=== PATIENT | male | born 1940 | race Caucasian/White ===

== ENCOUNTER 2019-05-27 14:26 | Day surgery (SDC) | payer MEDICARE ==
[2019-05-27] MEDS ORDERED: LIDOCAINE 2% MDV (20MG/ML) 20ML VIAL IV ONE (14:27)
[2019-05-27] MEDS ORDERED: SEVOFLURANE 250 ML INH ONE (14:27)
[2019-05-27] MEDS ORDERED: EPHEDRINE SULFATE 50 MG/ML ML IV ONE (14:27)
[2019-05-27] MEDS ORDERED: FENTANYL PF 100MCG/2ML VIAL IV ONE (14:27)
[2019-05-27] MEDS ORDERED: PROPOFOL 10 MG/ML VIAL IV ONE (14:27)
[2019-05-27] MEDS ORDERED: RINGERS SOLUTION,LACTATED 1,000 ML IV ONE ×2 (14:35→16:03)
[2019-05-27 15:03] LABS: ABSOLUTE NEUTROPHIL COUNT 8.63; HEMATOCRIT 39.3 % (42.0-52.0); HEMOGLOBIN 12.6 gm/dl (14.0-18.0); MEAN CELL VOLUME 88.9 fl (81-97); MEAN CORPUSCULAR HEMOGLOBIN 28.5 pg (27-33); MEAN CORPUSCULAR HGB CONC 32.1 g/dl (32-36); MEAN PLATELET VOLUME 12.2 fl (7.4-10.4); PLATELET COUNT 144 K/uL (130-400); RED BLOOD COUNT 4.42 M/uL (4.40-5.70); RED CELL DISTRIBUTION WIDTH 14.7 % (11.5-14.5); WHITE BLOOD COUNT W/O DIFF 10.4 K/uL (4.2-12.2)
[2019-05-27 15:16] LABS: BLOOD UREA NITROGEN 28 mg/dL (8-23)
[2019-05-27 15:17] LABS: CREATININE 1.1 mg/dL (0.7-1.2); EST GLOMERULAR FILTRATION RATE > 60 mL/min
[2019-05-27 15:19] LABS: GLUCOSE,RANDOM 424 mg/dL (74-109)
[2019-05-27] MEDS ORDERED: NOVOLOG FLEXPEN (INSULIN ASPART) 100 UNITS/ML SQ ONE (16:35)
--- NOTE | 2019-05-27 16:48 | Consult ---
Consult Order Detail - Reason for Consult Consult Date: 05/27/19 - Chief Complaint Chief Complaint: GROSS HEMATURIA HPI Consult - General Complaint: Hyperglycemia -: Unknown Consistency: Constant - History of Present Illness History of Present Illness: Mr. Sainz is a 78 y/o male patient who presents to [facility] after having gross hematuria. The patient had bladder tumor resection yesterday afternoon and was discharged. As per report the patient continued to have large volume hematuria and was instructed to come into the hospital for further evaluation. On arrival pre-operative labs showed that his Hgb was 12 and his serum glucose was 403. He is not on any medications for glucose control and has no diabetic history. His other history includes a recent heart valve repair and he is anticoagulated on Coumadin which he stopped several days before surgery. A medicine consult was placed to assess the patient's hyperglycemia and management until transfer Past Medical History - SOCIAL HISTORY Smoking Status: Former smoker Alcohol Use: Occasional - RESPIRATORY Hx Respiratory Disorders: Yes Hx COPD: Yes (slight) Hx Sleep Apnea: Yes Hx of CPAP: Yes (doesnt use) - CARDIOVASCULAR Hx Cardio Disorders: Yes Hx Abnormal EKG: Yes ("i need defibrillator") Hx Cardiac Cath: Yes Hx CHF: Yes Hx Hypertension: Yes Hx Pacemaker/Defib: (been told he needs it) Hx Vascular Disease: Yes (blood in urine) Hx Coronary Artery Disease: Yes (2 stents placed) Hx Coronary Artery Bypass Graft: Yes (double [id number]) - NEURO Hx Neuro Disorders: Yes Hx CVA: No Hx TIA: Yes (2000?) - GI Hx GI Disorders: No - Hx Genitourinary Disorders: Yes Hx Bladder Problem: Yes (bloody urine -had bx 05/26/19) Hx Kidney Stones: Yes (06/2018) Hx Prostate Problems: Yes (enlarged) - ENDOCRINE Hx Endocrine Disorders: No - MUSCULOSKELETAL Hx Musculoskeletal Disorders: Yes Hx Arthritis: Yes (hands) - PSYCH Hx Psych Problems: No - HEMATOLOGY/ONCOLOGY Hx Hematology/Oncology Disorders: Yes Comment:: on warfarin Family Medical History Hx Cancer: Father, Mother Hx Diabetes: Mother Hx Heart Disease: Father, Mother H&P Meds - Home Medications and Allergies Allergies Allergy/AdvReac Type Severity Reaction Status Date / Time celecoxib [From Celebrex] AdvReac Intermediate facial Verified 05/27/19 14:19 drooping Physical Exam - Vital Signs Vital Signs: Vital Signs - Last 24 Hrs Temp Pulse Resp BP Pulse Ox 05/27/19 16:33 96 H 14 142/85 98 05/27/19 16:30 97.9 F 97 H 15 128/78 97 05/27/19 14:35 97.7 F 95 H 15 126/78 94 L - General General Appearance: Other (Lethargic ) - Cardiovascular Cardiovascular Exam: Regular rate - Skin Skin exam: Normal color Results - Labs Result Diagrams: 05/27/19 14:59 05/27/19 14:59 Labs Last 24 Hours: Laboratory Results - last 24 hr 05/27/19 05/27/19 14:59 14:59 WBC 10.4 RBC 4.42 Hgb 12.6 L Hct 39.3 L MCV 88.9 MCH 28.5 MCHC 32.1 RDW 14.7 H Plt Count 144 MPV 12.2 H Neutrophils % 78.0 Band Neutrophils % 0.0 Eosinophils % Not Reportable Basophils % Not Reportable Absolute Neutrophils 8.63 Lymphocytes 13.0 L Monocytes 9.0 Basophils 0.0 Eosinophil Count 0.0 Sodium 132 L Potassium 4.7 H Chloride 93 L Carbon Dioxide 25.0 Anion Gap 14.0 BUN 28 H Creatinine 1.1 Estimated GFR > 60 Random Glucose 424 H Calcium 9.4 Assessment and Plan - Assessment and Plan (1) Hyperglycemia Current Visit: Yes Status: Acute Base Code: R73.9 - HYPERGLYCEMIA, UNSPECIFIED Comment: 05/27/19: - serum glucose 424 on admission. - will initiate sliding scale insulin starting with 12 units novolog. - ivf: 0.9% nacl wide open ,accuchecks Q4H. - glycemic control to continue as per admitting service at [facility].
[2019-05-27 17:07] LABS: HEMATOCRIT 36.8 % (42.0-52.0); HEMOGLOBIN 11.5 gm/dl (14.0-18.0)
[2019-05-27 18:07] LABS: CREATININE 1.3 mg/dL (0.7-1.2)
== END 2019-05-27 18:25 | disposition short-term general hospital (02) ==
LOC: SUR 14:26
PROVIDERS: ATTEND Urology
DX: R31.0 Gross hematuria (principal); I10 Essential (primary) hypertension; E78.00 Pure hypercholesterolemia, unspecified; Z79.01 Long term (current) use of anticoagulants; J44.9 Chronic obstructive pulmonary disease, unspecified; I50.9 Heart failure, unspecified; Z95.1 Presence of aortocoronary bypass graft; I47.1 Supraventricular tachycardia
CPT/HCPCS: 52001; 52214; 00916; 83735; 85018; 85014; 80048; 36416; 82948; 85027; 93005; 93010; J3010; J1815; J7120